=== PATIENT | male | born 1950 | race Caucasian/White ===

== ENCOUNTER → 2017-08-05 | Outpatient (CLI) | payer OTHER ==
--- NOTE | 2017-08-05 15:48 | RAD ---
FDG tumor localization scan, PET/CT, 08/05/2017: History: Abnormal CT study, pulmonary nodule, previous colon cancer Following IV injection of 13.2 mCi of 18 F-FDG, imaging was performed from the skull base to the proximal thighs. The noncontrast CT component was performed for attenuation correction and anatomic localization purposes rather than for primary diagnosis. The patient's blood glucose level at the time of injection was 110 MG/DL. There is a mildly hypermetabolic focus in the left upper lobe which corresponds to a hazy nonsolid pulmonary opacities measure approximately 16 mm. The maximum SUV is 2.3. An inflammatory process is suspected. There is an additional hypermetabolic nodule in the anterior aspect of the left lower lobe abutting the fissure in the left midlung. This corresponds to to a 14 mm part solid nodule as seen on the CT component. This demonstrates a maximum SUV of 2.9. No other significant hypermetabolic pulmonary focus is seen. The CT component demonstrates calcific pleural plaquing bilaterally. There are scattered linear opacities in both lungs compatible with scars. There is slightly increased activity at both [place], of doubtful significance. No hypermetabolic mediastinal adenopathy is seen. The CT component demonstrates moderate calcific plaquing of the aorta with moderate coronary artery calcifications. Physiologic activity is evident in the neck. There is increased activity at the right AC joint level compatible with arthritis. GI tract and urinary tract activity is present in the abdomen and pelvis. Several foci of increased FDG uptake in the right upper quadrant. To be related to bowel loops. No hypermetabolic mass is seen. There is mildly increased activity at the right groin in a linear configuration which appears to correspond in location to a vascular structure. Has there been a recent intervention in this region? No hypermetabolic adenopathy is seen at either groin level. Incidental CT findings include the presence of pneumobilia. The left kidney is atrophic and demonstrates very little FDG uptake. There are extensive arterial calcifications with dense calcification of the proximal left renal artery. A left hip prosthesis is in place. IMPRESSION: 1. Small nonsolid left upper lobe pulmonary opacity demonstrating low level FDG uptake. An inflammatory process is likely. 2. A part solid nodule in the left lower lobe is mildly hypermetabolic and may be neoplastic or inflammatory. CT follow-up is suggested. 3. No PET evidence of metastatic disease in the abdomen or pelvis.
== END | disposition home or self-care (01) ==
LOC: PETSC 10:31
PROVIDERS: ATTEND Internal Medicine
DX: R91.8 Other nonspecific abnormal finding of lung field (principal); Z85.038 Personal history of other malignant neoplasm of large intestine
CPT/HCPCS: 78815; A9552